=== PATIENT | female | born 1990 | race Caucasian/White ===

== ENCOUNTER 2018-02-08 23:12 | Emergency (ER) | payer BC, OTHER ==
[2018-02-09] MEDS: DICYCLOMINE 10 MG CAP PO (01:17)
[2018-02-09] MEDS: ONDANSETRON (ODT) 4 MG TAB ODT (01:17)
== END 2018-02-09 01:35 | disposition home or self-care (01) ==
LOC: FTE 23:12
DX: A08.4 Viral intestinal infection, unspecified (principal)
CPT/HCPCS: 99284